=== PATIENT | female | born 1935 | race Caucasian/White ===

== ENCOUNTER 2020-07-12 21:07 | Emergency (ER) | payer MEDICARE, OTHER, SELFPAY ==
[2020-07-12 21:11] VITALS: BP 206/114; PULSE 92; RESP 14; TEMP 36.7; O2SAT 97; BMI 25.0
--- NOTE | 2020-07-12 21:11 | ECG_ITS ---
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 Measurements Intervals Ralph Rate: 92 P: 67 WI: 180 QRS: 25 QRSD: 92 T: 85 QT: 366 QTc: 454 Interpretive Statements SINUS RHYTHM WITH FREQUENT VENTRICULAR PREMATURE COMPLEXES NONSPECIFIC ST & T-WAVE ABNORMALITY ABNORMAL RHYTHM ECG Compared to ECG 09/11/2018 12:37:59 T-wave abnormality now present Myocardial infarct finding no longer present Electronically Signed On 07-13-2020 9:34:23 CDT by Boris Panda M.D. [id number]
--- NOTE | 2020-07-12 21:12 | ED_ITS ---
HPI - Weakness General: Chief complaint: General Medical Stated complaint: htn and gen weakness Time Seen by Provider: 07/12/20 21:08 Source: patient and EMS Mode of arrival: EMS Limitations: no limitations History of Present Illness: HPI Narrative: 85-year-old female who states that tonight she started having some generalized weakness checked her blood pressure and it was in the 200s. She states she became concerned. She had no focal deficits and states she just did not feel well and had some weakness. Patient's blood pressure here is 206/114. States she is feeling improved. She denies any vision changes and denies any difficulty walking. She states she was on a blood pressure medicine has been off of it for 2 to 3 months. Denies any chest pain or shortness of breath. Associated symptoms: Denies chest pain, chills, dysuria, easy bruising, fever(s), nausea or vomiting Review of Systems Const: Denies: fever(s), chills, body aches or change in appetite Eyes: Denies: blurry vision or eye discomfort ENMT: Denies: throat pain or dental pain Card: Denies: chest pain Resp: Denies: dyspnea GI: Denies: abdominal pain, nausea, vomiting or diarrhea : Denies: dysuria Musc: Denies: neck pain or back pain Skin/Breast: Denies: rash Neuro: Reports: weakness in extremities Psych: Denies: depression Greyson/Lymph: Denies: easy bruising All/Imm: Denies: urticaria Physical Exam Const: COMMON NORMALS: no acute distress, patient oriented x3 and healthy a ppearing HENMT: COMMON NORMALS: normocephalic and atraumatic HEAD & SCALP: normocephalic and atraumatic Eye: COMMON NORMALS: Equal, round and reactive pupils present and EOMs intact bilaterally PUPIL: Yes Equal, round and reactive pupils present Neck/C-Spine: COMMON NORMALS: full ROM and supple Chest: COMMONS NORMALS: normal inspection of the chest and normal palpation of entire chest wall Resp: COMMON NORMALS: normal respiratory effort, No retractions, No use of accessory muscles and clear to auscultation bilaterally AUSCULTATION: clear to auscultation bilaterally Cardio: COMMON NORMALS: regular rate, regular rhythm and No murmurs present (Cardio) RATE: regular rate RHYTHM: regular rhythm GI: COMMON NORMALS: Normal to inspection, nondistended, normoactive bowel sounds present, Soft to palpation, non-tender and no masses PALPATION: Yes Soft to palpation Extremity: COMMON NORMALS: normal to inspection and full ROM Neuro: COMMON NORMALS: patient oriented x3, moves all extremities and no focal motor deficits Psych: COMMON NORMALS: mental status grossly normal, Normal thought process present and cooperative THOUGHT PROCESS: Normal thought process present Skin: COMMON NORMALS: no rashes or lesions noted and no wounds GENERAL SKIN EXAM: no rashes or lesions noted Course Vital Signs: Vital signs: Vital Signs Temperature 98.0 F 07/12/20 21:11 Pulse Rate 76 07/12/20 21:29 Respiratory Rate 16 07/12/20 21:29 Blood Pressure 206/114 07/12/20 21:29 Pulse Oximetry 96 07/12/20 21:29 MDM - Weakness MDM Narrative: Medical decision making narrative: Patient presents here with high blood pressure. Blood pressure here is improving. She had some generalized weakness likely from her hypertension. CT head here shows no signs of stroke and her blood work is normal. She has no focal deficits. We will restart her back on her lisinopril that she was taking. She is to follow-up with PCP in 5 to 7 days and return if worsening. She understands and agrees to plan. Lab Data: Labs: Lab Results 07/12/20 07/12/20 07/12/20 Range/Units 21:22 21:22 22:30 WBC 7.1 (4.0-10.0) 10^3/ uL RBC 4.28 (4.1-5.3) 10^6/u L Hgb 11.7 (11.5-15.3) g/dL Hct 37.6 (37.0-47.0) % MCV 87.9 (81-99) fL MCH 27.3 L (28.0-34.0) pg MCHC 31.1 (30.0-36.0) g/dL RDW 14.4 (12.1-15.1) % Plt Count 321 (130-400) 10^3/c mm MPV 9.8 (7.4-10.4) fL Neut % (Auto) 51.5 % Lymph % (Auto) 24.5 % [place] % (Auto) 13.9 % Eos % (Auto) 8.5 % Baso % (Auto) 1.3 % Neut # (Auto) 3.66 (1.8-7.7) 10^3/u L Lymph # (Auto) 1.7 (0.8-4.8) 10^3/u L Huntington # (Auto) 1.0 H (0.2-0.9) 10^3/u L Eos # (Auto) 0.6 (0.0-0.8) 10^3/u L Baso # (Auto) 0.1 (0.0-0.1) 10^3/u L Nucleated RBC % (a uto) 0 % Nucleated RBCs # 0.0 /100WBC Sodium Cancelled 142 Potassium Cancelled 3.8 Chloride Cancelled 107 Carbon Dioxide Cancelled 23 Anion Gap Cancelled 15.8 BUN Cancelled Creatinine Cancelled GFR Calculation Cancelled Not Reportable Glucose Cancelled 113 Calculated Osmolal ity Cancelled Calcium Cancelled 9.0 Total Bilirubin Cancelled 0.2 AST Cancelled 15 ALT Cancelled 8 Alkaline Phosphata se Cancelled 87 Total Protein Cancelled 7.1 Albumin Cancelled 3.8 Globulin Cancelled 3.3 Imaging Data^: CT Head: Attestation: I personally reviewed and interpreted this imaging study as follows: Radiologist's impression: [place] [address] CT Scan Report Signed Patient: Josephine Springer Unit #: [id number] : 1935 Age/Sex: 85 / F ADM Date: 07/12/20 Loc: ER Room/Bed: Attending Dr: Ordering Provider/Ordering MD: Zayra Hargrove MD Date of Service: 07/12/20 Procedure(s): CT head wo con* [id number] Accession Number(s): [id number] Report Number: [id number] PROCEDURE INFORMATION: Exam: CT Head Without Contrast Exam date and time: 07/12/2020 9:17 PM Age: 85 years old Clinical indication: Dizziness and weakness, extremity and other: HTN; Bilateral TECHNIQUE: Imaging protocol: Computed tomography of the head without contrast. Radiation optimization: All CT scans at this facility use at least one of these dose optimization techniques: automated exposure control; mA and/or kV adjustment per patient size (includes targeted exams where dose is matched to clinical indication); or iterative reconstruction. ADDITIONAL STUDY INFORMATION: Total DLP (mGy-cm): 834.53 COMPARISON: CT head wo con* [id number] 09/10/2018 4:12 PM FINDINGS: There is mild low density in the bilateral periventricular white matter which may represent chronic small vessel ischemic disease in the appropriate clinical setting. There are prominent intracranial arterial calcifications. Mild basal ganglia calcifications are likely physiologic. There is mild cerebral cortical volume loss. Ventricles do not appear significantly dilated. No depressed calvarial fracture is demonstrated. There is prominent opacification in visualized left maxillary sinus, most compatible with mucosal disease. Visualized mastoid air cells demonstrate no significant opacification. CT/CT head wo con* [id number] IMPRESSION: Probable chronic ischemic changes as discussed above. There is prominent opacification in visualized left maxillary sinus, most compatible with mucosal disease. EKG Data^: EKG 1: Attestation: I personally reviewed and interpreted this EKG as follows: EKG interpretation date: 07/12/20 EKG interpretation time: 21:18 Interpretation: nsr hr [address] or t wave abnormalities qrs 92 qtc 416 Discharge Plan Discharge Patient Disposition: Home Clinical Impression: Hypertension Qualifiers: Hypertension type: unspecified Qualified Code(s): I10 - Essential (primary) hypertension Condition: Stable Prescriptions: New lisinopril 10 mg tablet 10 mg PO DAILY Qty: 30 RF: 0 Discharge Orders: Discharge Order (Routine); Ordered 07/12/20 Ordered By: Zayra Hargrove Referrals: Beni Lopez DO [Primary Care Provider] - Discharge Diet: Advance as tolerated Discharge Activity: Resume usual activity Patient Instructions: Hypertension (ED) Coding Level of Care Code 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
[2020-07-12 21:29] VITALS: BP 206/114; PULSE 76; RESP 16; O2SAT 96
[2020-07-12 21:29] LABS: Basophils # 0.1 10^3/uL (0.0-0.1); Basophils % 1.3 %; Eosinophils # 0.6 10^3/uL (0.0-0.8); Eosinophils % 8.5 %; Hematocrit 37.6 % (37.0-47.0); Hemoglobin 11.7 g/dL (11.5-15.3); Lymphocytes # 1.7 10^3/uL (0.8-4.8); Lymphocytes % 24.5 %; Mean Corpuscular HGB Conc 31.1 g/dL (30.0-36.0); Mean Corpuscular Hemoglobin 27.3 pg (28.0-34.0); Mean Corpuscular Volume 87.9 fL (81-99); Mean Platelet Volume 9.8 fL (7.4-10.4); Monocytes % 13.9 %; Neutrophils # 3.66 10^3/uL (1.8-7.7); Neutrophils % 51.5 %; Nucleated Red Blood Cells % 0 %; Platelet Count 321 10^3/cmm (130-400); Red Blood Count 4.28 10^6/uL (4.1-5.3); Red Cell Distribution Width 14.4 % (12.1-15.1); White Blood Count 7.1 10^3/uL (4.0-10.0)
[2020-07-12] MEDS: hyDRALAzine 20 mg/mL INJ 1 mL 10 MG IVP (21:38)
[2020-07-12 21:46] LABS: Slide Review Slide Review Perform
[2020-07-12] MEDS: lisinopril 10 mg Tablet PO (22:41)
[2020-07-12 22:54] LABS: Alanine Aminotransferase 8 U/L (0-33); Albumin Level 3.8 g/dL (3.5-5.2); Alkaline Phosphatase 87 IU/L (35-105); Anion Gap 15.8 (5-19); Aspartate Amino Transferase 15 U/L (0-32); Blood Urea Nitrogen 25 mg/dL (8-23); Carbon Dioxide 23 mmol/L (22-29); Chloride 107 mmol/L (98-107); Globulin 3.3 g/dL (1.3-4.6); Glucose 113 mg/dL (65-115); Osmolality Calculated 299 mOsm/kg (285-295); Potassium 3.8 mmol/L (3.5-5.1); Sodium 142 mmol/L (136-145); Total Bilirubin 0.2 mg/dL (0.15-1.2); Total Protein 7.1 g/dL (6.6-8.7)
[2020-07-12 23:15] VITALS: BP 172/89; PULSE 68; RESP 18
== END 2020-07-12 23:31 | disposition home or self-care (01) ==
PROVIDERS: Emergency Provider Emergency Medicine; PCP Internal Medicine
DX: I10 Essential (primary) hypertension (principal)
CPT/HCPCS: 12345; 70450; 80053; 85025; 93005; 96374; 99282; 99283; J0360

== ENCOUNTER → 2022-01-07 10:14 | Outpatient (BNVA) | payer MEDICARE, OTHER, SELFPAY | PROVIDERS: PCP Internal Medicine; Visit Provider Internal Medicine Cardiovascular Disease | DX: I48.91 Unspecified atrial fibrillation (principal); I49.3 Ventricular premature depolarization; I47.2 Ventricular tachycardia; I10 Essential (primary) hypertension; E78.00 Pure hypercholesterolemia, unspecified; K21.9 Gastro-esophageal reflux disease without esophagitis; C67.9 Malignant neoplasm of bladder, unspecified; I47.1 Supraventricular tachycardia; Z87.891 Personal history of nicotine dependence; Z79.82 Long term (current) use of aspirin | CPT/HCPCS: 99214 ==

== ENCOUNTER 2022-01-18 13:08 | Outpatient (CLI) | payer MEDICARE, OTHER, SELFPAY ==
--- NOTE | 2022-01-18 14:15 | USCV_ITS ---
Josephine Springer Age: 87 Gender: F : 1935 Exam Date: 01/18/2022 13:41 Ordering Phys: Deyanira Briceno MD ([email or web address]) Technologist: SANTINO [place] [facility] [place]: VENTRICULAR PREMATURE DEPOLARIZATION BP: 140 / 80 HR: 144 Rhythm: Sinus Technical Quality: Adequate MEASUREMENTS (Male / Female) Normal Values 2D ECHO LV Diastolic Diameter PLAX 4.5 cm 4.2 - 5.9 / 3.9 - 5.3 cm LV Systolic Diameter PLAX 2.6 cm IVS Diastolic Thickness 1.1 cm 0.6 - 1.0 / 0.6 - 0.9 cm IVS Systolic Thickness 1.8 cm LVPW Diastolic Thickness 1.1 cm 0.6 - 1.0 / 0.6 - 0.9 cm LVPW Systolic Thickness 1.6 cm LVOT Diameter 2.0 cm LV Ejection Fraction 2D Teich 73.3 % LV Ejection Fraction MOD 2C 68.9 % LV Ejection Fraction 2C AL 70.9 % LA Diameter 3.2 cm LA Width 2.9 cm LA Height 4.6 cm RA Width 3.0 cm RA Height 3.9 cm Aorta at Sinotubular Diameter 2.1 cm M-MODE Aortic Annulus Diameter 2.3 cm LA Ao Ratio MM 1.4 MV E Point Septal Separation 0.7 cm DOPPLER AV Peak Velocity 114.0 cm/s LVOT Peak Velocity 89.0 cm/s AV Area Cont Eq vti 2.4 cm squared AV Area Cont Eq pk 2.4 cm squared MV Peak Velocity 134.0 cm/s MV Area PHT 3.1 cm squared Mitral E to A Ratio 0.8 MV E' Velocity 53.0 cm/s Mitral E to MV E' Ratio 14.3 Mitral E to LV E' Lateral Ratio 16.4 Mitral E to LV E' Septal Ratio 12.8 TR Peak Velocity 255.6 cm/s TR Peak Gradient 26.1 mmHg TR Mean Velocity 221.1 cm/s TR Mean Gradient 19.7 mmHg TR Velocity Time Integral 73.7 cm TV Peak E Velocity 51.0 cm/s Right Atrial Pressure 3.0 mmHg Pulmonary Artery Systolic Pressu 29.1 mmHg PV Peak Velocity 84.0 cm/s RV Acceleration Time 0.1 s RV Ejection Time 0.3 s RV AcT/ET 0.3 FINDINGS Left Ventricle Normal left ventricular size, systolic function and wall thickness, with no regional wall motion abnormalities. Left ventricular ejection fraction is estimated at 65 %. Grade II diastolic dysfunction, moderately elevated filling pressures. Right Ventricle Normal right ventricular size and systolic function. Right ventricular systolic pressure 29.1 mmHg. Right Atrium Normal right atrial size. Right atrial pressure estimated at 3 mm Hg. Left Atrium Mildly increased left atrial size. Small patent foramen ovale with left to right shunt. Mitral Valve Structurally normal mitral valve. No mitral valve stenosis. Trace to mild mitral valve regurgitation. Aortic Valve Structurally normal trileaflet aortic valve. No aortic valve stenosis. Trace aortic valve regurgitation. Tricuspid Valve Structurally normal tricuspid valve. No tricuspid valve stenosis. Mild tricuspid valve regurgitation. Pulmonic Valve Structurally normal pulmonic valve. No pulmonary valve stenosis. Trace pulmonary valve regurgitation. Pericardium No pericardial effusion. Aorta Normal size aortic root and proximal ascending aorta. Normal sized inferior vena cava with >50% respiratory variation. CONCLUSIONS 1. Normal left ventricular size, systolic function and wall thickness, with no regional wall motion abnormalities. Left ventricular ejection fraction is estimated at 65 %. Grade II diastolic dysfunction, moderately elevated filling pressures. 2. Mildly increased left atrial size. 3. Pulmonary artery pressure estimated at 29 mm Hg. 4. Small patent foramen ovale with left to right shunt. 5. When compared to echocardiogram dated 09/11/2018; small PFO is noted now. Deyanira Briceno MD (Electronically Signed) Final Date: 20 January 2022 21:55 S
== END 2022-01-18 13:09 | disposition home or self-care (01) ==
LOC: RAD 13:10
PROVIDERS: PCP Internal Medicine; Visit Provider Internal Medicine Cardiovascular Disease
DX: I49.3 Ventricular premature depolarization (principal)
CPT/HCPCS: 93306

== ENCOUNTER 2022-03-05 09:20 | Outpatient (CLI) | payer MEDICARE, OTHER, SELFPAY ==
[2022-03-05 10:14] VITALS: BMI 24.7
--- NOTE | 2022-03-05 10:19 | ECG_ITS ---
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 Interpretive Statements NAME OF STUDY: LEXISCAN SESTAMIBI STRESS TEST INDICATION: Nonsustained ventricular tachycardia and frequent PVCs' PROCEDURE: At the baseline, the blood pressure was 171/84 mmHg, oxygen saturation 95% with a heart rate of 75 bpm. The electrocardiogram showed normal sinus rhythm, normal axis with moderate ST depression in inferolateral leads. The Lexiscan was infused over a period of 20 seconds. A total of 0.4 milligrams of Lexiscan was infused. The stress phase was continued for a total of 5 minutes. Heart rate at the end of the stress phase was 95 bpm, oxygen saturation 96% with a blood pressure of 172/81 mmHg. The EKG at the peak infusion revealed sinus rhythm with no significant ST-T wave changes. The study was terminated due to protocol completion. Sestamibi was injected 20 seconds after the Lexiscan infusion. Blood pressure at the end of the recovery phase was 179/82 mmHg, oxygen saturation 95% with a heart rate of 92 beats per minute. Isolated PVCs noted in recovery. CONCLUSION: 1. No significant EKG changes with the LexiScan infusion. 2. No LexiScan induced chest pain or cardiac arrhythmia. 3. Normal blood pressure and heart rate response. 4. Sestamibi/sestamibi perfusion scan pending; see separate report. Electronically Signed On 03-08-2022 14:30:25 CDT by Deyanira Briceno M.D. [id number]
--- NOTE | 2022-03-05 10:20 | NMCV_ITS ---
NM rae perf SPECT r/s* [id number] Josephine Springer Age: 87 Gender: F : 1935 Exam Date: 03/05/2022 11:04 Ordering Phys: Deyanira Briceno MD ([email or web address]) Technologist: AMBER Crowder Exam Location: [facility] Indications: VENTRICULAR PREMATURE DEPOLARIZATION STRESS TEST [facility] IMAGE PROTOCOL Rest/Stress 1 Lexiscan Day Radiopharmaceutical Dose (mCi) Administration Site Administered by Rest: Tc-99m 10.6 IV AMBER [place] Sestamibi Stress:Tc-99m 32.5 IV AMBER Crowder Sestamichung Rest: 05-Mar-2022 60 Discovery 630 Stress: 05-Mar-2022 30 Discovery 630 0.4mg Lexiscan. Supine position only as patient was unable to lay prone. SPECT RESULTS Technical Quality: Excellent Raw Data Analysis: Normal Image Corrections: No attenuation or motion correction applied Summed Stress Score: 2 Summed Rest Score: 1 Summed Difference Score: 1 PERFUSION FINDINGS Small sized perfusion abnormality of mild severity of apical lateral and apical velez. FUNCTIONAL RESULTS (calculated via Gated SPECT) Stress Image LV EF (%): 61 Stress EDV (mL):72 TID: 0.9 Stress ESV (mL):28 FUNCTIONAL FINDINGS: The left ventricle is normal in size. Transient Ischemia Dilatation of 0.9. There is normal left ventricular systolic function. The left ventricular ejection fraction is normal with a value of 61%. There is normal left ventricular wall thickening with no regional wall motion abnormality. Normal end-diastolic and end-systolic volumes. IMPRESSIONS 1. Small sized perfusion abnormality of mild severity of apical lateral and apical velez. 2. This may represent small area of ischemia in left anterior descending artery territory. 3. Overall left ventricular systolic function is normal without regional wall motion abnormalities, LVEF=61%. 4. No significant EKG changes with Lexiscan infusion. Refer to separate report for details. Deyanira Briceno MD (Electronically Signed) Final Date: 08 March 2022 14:34 S
[2022-03-05] MEDS: regadenoson 0.4 Mg/5 ml Syringe IVP (12:06)
[2022-03-05 12:23] VITALS: BP 179/82; PULSE 92
== END 2022-03-05 09:21 | disposition home or self-care (01) ==
LOC: CDL 09:24
PROVIDERS: PCP Internal Medicine; Visit Provider Internal Medicine Cardiovascular Disease
DX: I47.1 Supraventricular tachycardia (principal); I47.2 Ventricular tachycardia; I49.3 Ventricular premature depolarization
CPT/HCPCS: 78452; 93017; A9500; J2785

== ENCOUNTER → 2022-07-17 10:45 | Outpatient (BNVA) | payer MEDICARE, OTHER, SELFPAY | PROVIDERS: PCP Internal Medicine; Visit Provider Internal Medicine Cardiovascular Disease | DX: I49.3 Ventricular premature depolarization (principal); I47.20 Ventricular tachycardia, unspecified; I10 Essential (primary) hypertension; R94.39 Abnormal result of other cardiovascular function study; Z87.891 Personal history of nicotine dependence | CPT/HCPCS: 99214 ==

== ENCOUNTER → 2022-09-17 09:48 | Outpatient (BNVA) | payer MEDICARE, OTHER, SELFPAY | PROVIDERS: PCP Internal Medicine; Visit Provider Podiatrist Foot & Ankle Surgery | DX: I73.9 Peripheral vascular disease, unspecified (principal); L60.3 Nail dystrophy; M21.612 Bunion of left foot; M21.611 Bunion of right foot | CPT/HCPCS: 11721; 99203 ==

== ENCOUNTER → 2022-11-28 14:12 | Outpatient (BNVA) | payer MEDICARE, OTHER, SELFPAY | PROVIDERS: PCP Internal Medicine; Visit Provider Podiatrist Foot & Ankle Surgery | DX: I73.9 Peripheral vascular disease, unspecified (principal); L60.8 Other nail disorders; L60.3 Nail dystrophy; M21.612 Bunion of left foot; M21.611 Bunion of right foot | CPT/HCPCS: 11721 ==

== ENCOUNTER → 2023-01-29 09:46 | Outpatient (BNVA) | payer MEDICARE, OTHER, SELFPAY | PROVIDERS: PCP Internal Medicine; Visit Provider Podiatrist Foot & Ankle Surgery | DX: I73.9 Peripheral vascular disease, unspecified (principal); L60.8 Other nail disorders; L60.3 Nail dystrophy; M21.612 Bunion of left foot; M21.611 Bunion of right foot | CPT/HCPCS: 11721 ==

== ENCOUNTER → 2023-03-07 10:52 | Outpatient (BNVA) | payer MEDICARE, OTHER, SELFPAY | PROVIDERS: PCP Internal Medicine; Visit Provider Internal Medicine Cardiovascular Disease | DX: I49.3 Ventricular premature depolarization (principal); I47.1 Supraventricular tachycardia; I10 Essential (primary) hypertension; R94.39 Abnormal result of other cardiovascular function study; E78.00 Pure hypercholesterolemia, unspecified; Z87.891 Personal history of nicotine dependence | CPT/HCPCS: 99214 ==

== ENCOUNTER → 2023-04-02 09:33 | Outpatient (BNVA) | payer MEDICARE, OTHER, SELFPAY | PROVIDERS: PCP Internal Medicine; Visit Provider Podiatrist Foot & Ankle Surgery | DX: I73.9 Peripheral vascular disease, unspecified (principal); L60.8 Other nail disorders; L60.3 Nail dystrophy; M21.612 Bunion of left foot; M21.611 Bunion of right foot | CPT/HCPCS: 11721 ==

== ENCOUNTER → 2023-06-11 08:46 | Outpatient (BNVA) | payer MEDICARE, OTHER, SELFPAY | PROVIDERS: PCP Internal Medicine; Visit Provider Podiatrist Foot & Ankle Surgery | DX: L60.8 Other nail disorders (principal); L60.3 Nail dystrophy; I73.9 Peripheral vascular disease, unspecified; M21.619 Bunion of unspecified foot | CPT/HCPCS: 11721 ==

== ENCOUNTER → 2023-08-13 10:16 | Outpatient (BNVA) | payer MEDICARE, OTHER, SELFPAY | PROVIDERS: PCP Internal Medicine; Visit Provider Podiatrist Foot & Ankle Surgery | DX: L60.3 Nail dystrophy (principal); I73.9 Peripheral vascular disease, unspecified; M21.612 Bunion of left foot; M21.611 Bunion of right foot | CPT/HCPCS: 11721 ==

== ENCOUNTER → 2023-10-15 11:19 | Outpatient (BNVA) | payer MEDICARE, OTHER, SELFPAY | PROVIDERS: PCP Family Medicine; Visit Provider Podiatrist Foot & Ankle Surgery | DX: L60.3 Nail dystrophy (principal); I73.9 Peripheral vascular disease, unspecified; M21.619 Bunion of unspecified foot | CPT/HCPCS: 11721 ==

== ENCOUNTER → 2023-12-24 12:37 | Outpatient (BNVA) | payer MEDICARE, OTHER, SELFPAY | PROVIDERS: PCP Family Medicine; Visit Provider Podiatrist Foot & Ankle Surgery | DX: L60.3 Nail dystrophy (principal); I73.9 Peripheral vascular disease, unspecified; M21.612 Bunion of left foot; M21.611 Bunion of right foot | CPT/HCPCS: 11721 ==

== ENCOUNTER → 2024-03-10 12:48 | Outpatient (BNVA) | payer MEDICARE, OTHER, SELFPAY | PROVIDERS: PCP Family Medicine; Visit Provider Podiatrist Foot & Ankle Surgery | DX: L60.3 Nail dystrophy (principal); I73.9 Peripheral vascular disease, unspecified | CPT/HCPCS: 11721 ==

== ENCOUNTER → 2024-07-07 11:18 | Outpatient (BNVA) | payer MEDICARE, OTHER, SELFPAY | PROVIDERS: PCP Nurse Practitioner Family; Visit Provider Podiatrist Foot & Ankle Surgery | DX: E11.8 Type 2 diabetes mellitus with unspecified complications (principal); L60.3 Nail dystrophy; I73.9 Peripheral vascular disease, unspecified | CPT/HCPCS: 11721 ==

== ENCOUNTER → 2024-08-03 14:21 | Outpatient (BNVA) | payer MEDICARE, OTHER, SELFPAY | PROVIDERS: PCP Nurse Practitioner Family; Visit Provider Nurse Practitioner Family | DX: N39.0 Urinary tract infection, site not specified (principal); R39.9 Unspecified symptoms and signs involving the genitourinary system | CPT/HCPCS: 81000; 87086 ==

== ENCOUNTER → 2024-09-06 11:27 | Outpatient (BNVA) | payer MEDICARE, OTHER, SELFPAY | PROVIDERS: PCP Nurse Practitioner Family | DX: E11.8 Type 2 diabetes mellitus with unspecified complications (principal); L60.3 Nail dystrophy; I73.9 Peripheral vascular disease, unspecified | CPT/HCPCS: 11721 ==

== ENCOUNTER 2025-01-09 17:12 | Emergency (ER) | payer MEDICARE, OTHER, SELFPAY ==
[2025-01-09] VITALS (14 sets, daily range): BP systolic 100–158; BP diastolic 54–93; PULSE 80–95; RESP 16–23; TEMP 36.6–36.9; O2SAT 95–100; BMI 24.7
--- NOTE | 2025-01-09 17:22 | CTR_ITS ---
PROCEDURE INFORMATION: Exam: CT Head Without Contrast Exam date and time: 01/09/2025 7:21 PM Age: 89 years old Clinical indication: Weakness, extremity and weakness, facial; EMS arrival for left facial droop and left sided weakness. ; Additional info: Left sided facial droop/left sided weakness resolved TECHNIQUE: Imaging protocol: Computed tomography of the head without contrast. Radiation optimization: All CT scans at this facility use at least one of these dose optimization techniques: automated exposure control; mA and/or kV adjustment per patient size (includes targeted exams where dose is matched to clinical indication); or iterative reconstruction. 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 No acute intracranial abnormality. Cerebral ventricles: No ventriculomegaly. Paranasal sinuses: Visualized sinuses are unremarkable. No fluid levels. Mastoid air cells: Visualized mastoid air cells are well aerated. Bones: Unremarkable. No acute fracture. Soft tissues: Unremarkable. CT/CT head wo con* [id number] IMPRESSION: 1. No acute intracranial abnormality. 2. 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
--- NOTE | 2025-01-09 17:24 | ED_ITS ---
Documented by User: CECILE Smith 01/10/25 00:08 HPI - Weakness 2 General: Chief complaint: Weakness Stated complaint: weakness Time Seen by Provider: 01/09/25 17:13 Source: patient, family and EMS Mode of arrival: EMS Limitations: no limitations History of Present Illness: Patient is an 89-year-old female who arrives to the emergency department by ambulance for weakness. Patient a week ago reportedly had surgery on her bladder a week ago, and per family to EMS has not been quite right since. Does have a history of bladder cancer. There is report that she also fell at some point last night, no injuries or pain reported at this time from the patient. She is also alert and oriented and at baseline, however was noted by EMS that the patient's family had reported that around 1528 the patient had weakness in the left upper extremity as well as one-sided facial droop, was not specified what side the facial droop was on however. Symptoms have reportedly resolved since. At this time patient does not report any symptoms whatsoever. She does not report any chest pain or shortness of breath, fever, nausea or vomiting, lightheadedness or dizziness, or weakness at this time. It is worth noting that patient's last reported known well at baseline was prior to the bladder surgery that she just underwent. MD Complaint: generalized weakness Onset (ago): week(s) Duration: constant Context: recent surgery Associated symptoms: Denies chest pain, chills, dysuria, fever(s), headache(s), nausea or vomiting Review of Systems 2 General: Reports: 10 or more systems reviewed and unremarkable except in HPI and below Const: Denies: fever(s), chills or fatigue Eyes: Denies: change in vision ENMT: Denies: throat pain, ear or mastoid pain or nasal discharge Card: Denies: chest pain, palpitations, swelling of feet/ankles or lightheadedness Resp: Denies: dyspnea, productive cough or wheezing GI: Denies: abdominal pain, nausea, vomiting, diarrhea or constipation : Denies: difficulty voiding, dysuria or urinary frequency Musc: Denies: neck pain, back pain or joint pain Skin/Breast: Denies: rash Neuro: Reports: weakness in extremities, behavioral changes and other (Facial droop); Denies: headache(s) or numbness in extremities PFSH ED 2 PFSH: Medical History (Updated 01/09/25 @ 23:14 by CEICLE Smith) Acute on chronic blood loss anemia UTI (urinary tract infection) Hydronephrosis, left PSVT (paroxysmal supraventricular tachycardia) HTN (hypertension) Arthritis Sleep disorder Esophageal reflux Hypercholesteremia Bladder cancer Surgical History S/P ureteral stent placement Family History Father Hypertension Mother FH: CABG (coronary artery bypass surgery) Social History Smoking and tobacco/nicotine status: unknown if used tobacco/nicotine Physical Exam 2 Const: COMMON NORMALS: no acute distress, patient oriented x3 and alert G ENERAL APPEARANCE: cooperative ORIENTATION/CONSCIOUSNESS: Yes awake, Yes oriented to person, Yes oriented to place and Yes oriented to time HENMT: COMMON NORMALS: normocephalic and atraumatic HEAD & SCALP: n ormocephalic and atraumatic OTHER: Dry oral mucosa Eye: COMMON NORMALS: Equal, round and reactive pupils present, EOMs intact bilaterally and conjunctivae normal CONJUNCTIVA: Yes conjunctivae normal P UPIL: Yes Equal, round and reactive pupils present OTHER: Eyes track midline Neck/C-Spine: COMMON NORMALS: full ROM Resp: COMMON NORMALS: normal respiratory effort, No retractions, No use of accessory muscles and clear to auscultation bilaterally AUSCULTATION: clear to auscultation bilaterally Cardio: COMMON NORMALS: regular rate, regular rhythm, S1 normal heart sound present and S2 normal heart sound present RATE: regular rate RHYTHM: r egular rhythm HEART SOUNDS: S1 normal heart sound present and S2 normal heart sound present GI: COMMON NORMALS: Normal to inspection, nondistended, normoactive bowel sounds present, Soft to palpation and non-tender PALPATION: Yes Soft to palpation Extremity: COMMON NORMALS: normal to inspection and full ROM Neuro: COMMON NORMALS: patient oriented x3, moves all extremities and no sensory deficits noted SENSORIUM/ORIENTATION: Yes alert, Yes oriented to person, Yes oriented to place and Yes oriented to time SPEECH: speech normal GAIT: Yes Unable to assess gait MOTOR EXAM: 5/5 motor strength present throughout, no tremor noted, no asterixis, Normal motor muscle tone present throughout and Pronator motor function present pronator drift of left upper extremity Skin: COMMON NORMALS: no rashes or lesions noted GENERAL SKIN EXAM: no rashes or lesions noted Course 2 Vital Signs: Vital signs: Vital Signs Temperature 97.9 F 01/09/25 21:40 Pulse Rate 82 01/09/25 21:40 Respiratory Rate 22 H 01/09/25 21:40 Blood Pressure 132/71 01/09/25 21:40 Pulse Oximetry 95 01/09/25 21:40 Oxygen Delivery Me thod Room Air 01/09/25 20:30 MDM - Weakness Medical Decision Making Patient brought in by ambulance for weakness, there were concerns of strokelike symptoms as well with left sided weakness and facial droop reported by family. These had since resolved and it was noted that her last true normal baseline was a week ago following a surgical procedure at [facility] with urology in which she had cystography and stent removal in the left kidney. Some pronator drift noted here on exam unknown chronicity. However she has been at baseline mentation and vitals have been stable. It was noted that her hemoglobin significantly decreased to 5.7, family had noted that her preop labs were normal. Also bump in her creatinine that limited examination with a CTA, but head CT did not show any acute intracranial normality. Was started on blood products after type and screen, and initially consulted Dr. Cabral who had recommended abdomen pelvis CT. This did show a large hematoma of the left kidney with fluid in the left renal collecting system and a dilated left ureter to the bladder. 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 I consulted with Dr. Barbosa, urology at [facility], who had stated that based off of the family's needs that this could either be treated palliative or with further intervention. Patient was DNR and DNI, however family had noted that they would like further evaluation. Being that this was the case and after a long conversation with the family, elected for transfer to [facility] services. Dr. Brooke was the accepting hospitalist, with likely patient's current urologist consulting them in the morning. Patient started on 2 more units of blood and will transfer by [facility] in the morning. Staffed this patient with Dr. Dhaliwal who is aware of the patient's case. I also discussed this patient's case with Dr. Hargrove upon initial arrival. Patient is currently stable at this time and remaining at baseline mentation. Lab Data 01/09/25 18:13 01/09/25 18:[address] 01/09/25 17:22 IMPRESSION: 1. No acute intracranial abnormality. 2. 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 Chest X-Ray 01/09/25 17:24 IMPRESSION: Moderate-sized left-sided pleural effusion. Small right-sided pleural effusion. Abdomen/Pelvis CT 01/09/25 20:54 IMPRESSION: 1. Subcapsular hematoma of the left kidney measuring approximately 9.1 x 5.3 x 5.7 cm. 2. There is hyperdense fluid in the left renal collecting system, dilated left ureter down to the level of the bladder. 3. Circumferential bladder wall thickening with calcifications along the inner rim of the bladder wall. There is a tiny locule of air in the bladder. Nonspecific this can be seen the setting of cystitis. Correlate with UA. COMMENTS: Consistent with the [employer] [employer]'s Incidental Findings Committee white paper (J Am Jacqueline Radiol 2018): Any incidental renal lesion less than 1 cm or classified as too small to characterize, or any incidental cystic renal lesion characterized as simple-appearing, is likely benign. No follow-up imaging is recommended for these lesions per consensus recommendations based on imaging criteria. ADDENDUM: 01/09/25 0287 THIS REPORT CONTAINS FINDINGS THAT MAY BE CRITICAL TO PATIENT CARE. The findings were verbally communicated via telephone conference with JADA MENDIOLA at 9:58 PM CDT on 01/09/2025. The findings were acknowledged and understood. Laboratory Results WBC 13.93 10^3/uL (3.29-11.43) H 01/09/25 18: RBC 2.60 10^6/uL (3.85-5.65) L 01/09/25 18:13 Hgb 5.70 g/dL (11.27-16.99) L* 01/09/25 18:13 Hct 20.4 % (36-47) L* 01/09/25 18:13 MCV 78.5 fl (85-98) L 01/09/25 18: MCH 21.9 pg (27-33) L 01/09/25 18:13 MCHC 27.9 g/dL (30-55) L 01/09/25 18:13 RDW 17.7 % (12.1-15.1) H 01/09/25 18:13 Plt Count 399 10^3/cmm (157-399) 01/09/25 18:13 MPV 10.2 fL (7.4-10.4) 01/09/25 18:13 Neut % (Auto) 89.1 % 01/09/25 18:13 Lymph % (Auto) 4.1 % 01/09/25 18:13 [place] % (Auto) 6.3 % 01/09/25 18:13 Eos % (Auto) 0.0 % 01/09/25 18:13 Baso % (Auto) 0.1 % 01/09/25 18:13 Neut # (Auto) 12.41 10^3/uL (1.8-7.7) H 01/09/25 18:13 Lymph # (Auto) 0.6 10^3/uL (0.8-4.8) L 01/09/25 18:13 [place] # (Auto) 0.9 10^3/uL (0.2-0.9) 01/09/25 18:13 Eos # (Auto) 0.0 10^3/uL (0.0-0.8) 01/09/25 18:13 Baso # (Auto) 0.0 10^3/uL (0.0-0.1) 01/09/25 18:13 Nucleated RBC % (auto) 1.1 % 01/09/25 18:13 Nucleated RBCs # 0.2 /100WBC 01/09/25 18:13 PT 16.00 SECONDS (12.1-14.9) H 01/09/25 18:26 INR 1.20 (0.8-1.2) 01/09/25 18:26 APTT 35.6 SECONDS (23.9-36.7) 01/09/25 18:26 Sodium 133 mmol/L (136-145) L 01/09/25 18:13 Potassium 5.0 mmol/L (3.5-5.1) 01/09/25 18:13 Chloride 101 mmol/L (98-107) 01/09/25 18:13 Carbon Dioxide 17 mmol/L (22-29) L 01/09/25 18:13 Anion Gap 20.0 (5-19) H 01/09/25 18:13 BUN 41 mg/dL (8-23) H 01/09/25 18:13 Creatinine 2.6 mg/dL (0.5-0.9) H 01/09/25 18:13 GFR Calculation Not Reportable 01/09/25 18:13 Glucose 123 mg/dL (65-115) H 01/09/25 18:13 Calculated Osmolality 287 mOsm/kg (285-295) 01/09/25 18:13 Lactic Acid 2.0 mmol/L (0.5-2.2) 01/09/25 18:13 Calcium 8.9 mg/dL (8.5-10.5) 01/09/25 18:13 Magnesium 2.3 mg/dL (1.7-2.3) 01/09/25 18:13 Iron 8 ug/dL (37-145) L 01/09/25 18:13 TIBC 278 mcg/dl 01/09/25 18:13 % Saturation 2.8 % (20-50) L 01/09/25 18:13 Unsat Iron Binding 270 ug/dL (112-347) 01/09/25 18:13 Total Bilirubin 0.3 mg/dL (0.15-1.2) 01/09/25 18:13 AST 30 U/L (0-32) 01/09/25 18:13 ALT 14 U/L (0-33) 01/09/25 18:13 Alkaline Phosphatase 119 U/L (35-105) H 01/09/25 18:13 Total Protein 6.7 g/dL (6.6-8.7) 01/09/25 18:13 Albumin 2.8 g/dL (3.5-5.2) L 01/09/25 18:13 Globulin 3.9 g/dL (1.3-4.6) 01/09/25 18:13 Urine Color Yellow (Yellow) 01/09/25 19:42 Urine Appearance Slightly cloudy (CLEAR) 01/09/25 19:42 Urine pH 9 (5-7) A 01/09/25 19:42 Ur Specific [place] 1.010 (1.005-1.030) 01/09/25 19:42 Urine Protein 1+ (Negative) A 01/09/25 19:42 Urine Glucose (UA) Norm (Normal) 01/09/25 19:42 Urine Ketones Negative (Negative) 01/09/25 19:42 Urine Blood 3+ (Negative) A 01/09/25 19:42 Urine Nitrate Negative (Negative) 01/09/25 19:42 Urine Bilirubin Neg (Negative) 01/09/25 19:42 Urine Urobilinogen Norm mg/dL (Negative) 01/09/25 19:42 Ur Leukocyte Esterase 2+ (Negative) A 01/09/25 19:42 Urine RBC 21-50 /hpf (0-2) H 01/09/25 19:42 Urine WBC 21-50 /hpf (0-5) H 01/09/25 19:42 Ur Squamous Epith Cells 21-50 /hpf (0-5) H 01/09/25 19:42 Amorphous Sediment Not Reportable 01/09/25 19:42 Urine Bacteria Trace /hpf (NONE) 01/09/25 19:42 Hyaline Casts 4.52 /lpf 01/09/25 19:42 Blood Type O Positive 01/09/25 19:33 Rho(D) Type Rh positive 01/09/25 19:33 Antibody Screen Negative 01/09/25 19:33 Crossmatch See Detail 01/09/25 19:33 All radiology interpretation(s) finalized by discharge Discharge Plan Discharge Patient Disposition: Xfer Short-Term Hosp Clinical Impression: Renal hematoma, left Qualifiers: Encounter type: initial encounter Qualified Code(s): S37.012A - Minor contusion of left kidney, initial encounter Anemia Qualifiers: Anemia type: other cause Other causes of anemia: other cause, not classified Q ualified Code(s): D64.89 - Other specified anemias Condition: Stable Referrals: Denise Navarrete FNP-C [Primary Care Provider] - Print Language: [place] Coding Level of Care Code ED Ratoprinter for Chg Fwd Related Data Home Medications ?Medication ?Instructions ?Recorded ?Confirmed Calcium Citrate +D3 PO BID 10/08/21 09/06/24 aspirin 81 mg tablet,delayed 81 mg PO DAILY 10/08/21 1 11/07/23 release (Adult Low Dose Aspirin) vit cap PO 10/08/21 09/06/24 C,E,zinc,Nu-ehhhr-5-lutein-zeaxanthin 250 mg-2.5 mg-0.5 mg capsule potassium gluconate 600 mg (99 mg) 600 mg PO DAILY 09/06/24 tablet trimethoprim 100 mg tablet 100 mg PO DAILY 07/17/22 magnesium oxide 400 mg PO DAILY 03/07/2306/22 oxybutynin chloride 15 mg 15 mg PO DAILY 07/06/2406/22 tablet,extended release 24 hr Previous Rx's ?Medication ?Instructions ?Recorded metoprolol succinate 25 mg 25 mg PO DAILY #90 tabs tablet,extended release 24 hr vibegron 75 mg tablet (Gemtesa) 75 mg PO DAILY #90 tab s 07/06/24 ciprofloxacin HCl 500 mg tablet 500 mg PO BID #14 tabs 08/03/24 Allergies Allergy/AdvReac Type Severity Reaction Status Date / Time cephalexin Allergy Unknown unknown Verified 08/03/24 14:18 Penicillins Allergy Unknown Unknown Verified 08/03/24 14:18 Documented by User: Kevin Dhaliwal DO 01/10/25 01:20 HPI - Weakness 2 General: Chief complaint: Weakness Stated complaint: weakness Time Seen by Provider: 01/09/25 17:13 [facility] ED 2 PFSH: Medical History (Updated 01/09/25 @ 23:14 by CECILE Smith) Acute on chronic blood loss anemia UTI (urinary tract infection) Hydronephrosis, left PSVT (paroxysmal supraventricular tachycardia) HTN (hypertension) Arthritis Sleep disorder Esophageal reflux Hypercholesteremia Bladder cancer Surgical History S/P ureteral stent placement Family History Father Hypertension Mother FH: CABG (coronary artery bypass surgery) Social History Smoking and tobacco/nicotine status: unknown if used tobacco/nicotine Course 2 Vital Signs: Vital signs: Vital Signs Temperature 97.9 F 01/09/25 21:40 Pulse Rate 82 01/09/25 21:40 Respiratory Rate 22 H 01/09/25 21:40 Blood Pressure 132/71 01/09/25 21:40 Pulse Oximetry 95 01/09/25 21:40 Oxygen Delivery Me thod Room Air 01/09/25 20:30 MDM - Weakness Medical Decision Making Patient brought in by ambulance for weakness, there were concerns of strokelike symptoms as well with left sided weakness and facial droop reported by family. These had since resolved and it was noted that her last true normal baseline was a week ago following a surgical procedure at [facility] with urology in which she had cystography and stent removal in the left kidney. Some pronator drift noted here on exam unknown chronicity. However she has been at baseline mentation and vitals have been stable. It was noted that her hemoglobin significantly decreased to 5.7, family had noted that her preop labs were normal. Also bump in her creatinine that limited examination with a CTA, but head CT did not show any acute intracranial normality. Was started on blood products after type and screen, and initially consulted Dr. Cabral who had recommended abdomen pelvis CT. This did show a large hematoma of the left kidney with fluid in the left renal collecting system and a dilated left ureter to the bladder. 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 I consulted with Dr. Barbosa, urology at [facility], who had stated that based off of the family's needs that this could either be treated palliative or with further intervention. Patient was DNR and DNI, however family had noted that they would like further evaluation. Being that this was the case and after a long conversation with the family, elected for transfer to [facility] services. Dr. Brooke was the accepting hospitalist, with likely patient's current urologist consulting them in the morning. Patient started on 2 more units of blood and will transfer by [facility] in the morning. Staffed this patient with Dr. Dhaliwal who is aware of the patient's case. I also discussed this patient's case with Dr. Hargrove upon initial arrival. Patient is currently stable at this time and remaining at baseline mentation. This patient was originally seen by Mr. Sunita PA-C.? I agree with his history, evaluation, and treatment. Lab Data 01/09/25 18:13 01/09/25 18:[address] 01/09/25 17:22 IMPRESSION: 1. No acute intracranial abnormality. 2. 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 Chest X-Ray 01/09/25 17:24 IMPRESSION: Moderate-sized left-sided pleural effusion. Small right-sided pleural effusion. Abdomen/Pelvis CT 01/09/25 20:54 IMPRESSION: 1. Subcapsular hematoma of the left kidney measuring approximately 9.1 x 5.3 x 5.7 cm. 2. There is hyperdense fluid in the left renal collecting system, dilated left ureter down to the level of the bladder. 3. Circumferential bladder wall thickening with calcifications along the inner rim of the bladder wall. There is a tiny locule of air in the bladder. Nonspecific this can be seen the setting of cystitis. Correlate with UA. COMMENTS: Consistent with the [place] [employer]'s Incidental Findings Committee white paper (J Am Jacqueline Radiol 2018): Any incidental renal lesion less than 1 cm or classified as too small to characterize, or any incidental cystic renal lesion characterized as simple-appearing, is likely benign. No follow-up imaging is recommended for these lesions per consensus recommendations based on imaging criteria. ADDENDUM: 01/09/25 [id number] THIS REPORT CONTAINS FINDINGS THAT MAY BE CRITICAL TO PATIENT CARE. The findings were verbally communicated via telephone conference with JADA MENDIOLA at 9:58 PM CDT on 01/09/2025. The findings were acknowledged and understood. Laboratory Results WBC 13.93 10^3/uL (3.29-11.43) H 01/09/25 18:13 RBC 2.60 10^6/uL (3.85-5.65) L 01/09/25 18:13 Hgb 5.70 g/dL (11.27-16.99) L* 01/09/25 18:13 Hct 20.4 % (36-47) L* 01/09/25 18:13 MCV 78.5 fl (85-98) L 01/09/25 18:13 MCH 21.9 pg (27-33) L 01/09/25 18:13 MCHC 27.9 g/dL (30-55) L 01/09/25 18:13 RDW 17.7 % (12.1-15.1) H 01/09/25 18:13 Plt Count 399 10^3/cmm (157-399) 01/09/25 18:13 MPV 10.2 fL (7.4-10.4) 01/09/25 18:13 Neut % (Auto) 89.1 % 01/09/25 18:13 Lymph % (Auto) 4.1 % 01/09/25 18:13 [place] % (Auto) 6.3 % 01/09/25 18:13 Eos % (Auto) 0.0 % 01/09/25 18:13 Baso % (Auto) 0.1 % 01/09/25 18:13 Neut # (Auto) 12.41 10^3/uL (1.8-7.7) H 01/09/25 18:13 Lymph # (Auto) 0.6 10^3/uL (0.8-4.8) L 01/09/25 18:13 [place] # (Auto) 0.9 10^3/uL (0.2-0.9) 01/09/25 18:13 Eos # (Auto) 0.0 10^3/uL (0.0-0.8) 01/09/25 18:13 Baso # (Auto) 0.0 10^3/uL (0.0-0.1) 01/09/25 18:13 Nucleated RBC % (auto) 1.1 % 01/09/25 18:13 Nucleated RBCs # 0.2 /100WBC 01/09/25 18:13 PT 16.00 SECONDS (12.1-14.9) H 01/09/25 18:26 INR 1.20 (0.8-1.2) 01/09/25 18:26 APTT 35.6 SECONDS (23.9-36.7) 01/09/25 18:26 Sodium 133 mmol/L (136-145) L 01/09/25 18:13 Potassium 5.0 mmol/L (3.5-5.1) 01/09/25 18:13 Chloride 101 mmol/L (98-107) 01/09/25 18:13 Carbon Dioxide 17 mmol/L (22-29) L 01/09/25 18:13 Anion Gap 20.0 (5-19) H 01/09/25 18:13 BUN 41 mg/dL (8-23) H 01/09/25 18:13 Creatinine 2.6 mg/dL (0.5-0.9) H 01/09/25 18:13 GFR Calculation Not Reportable 01/09/25 18:13 Glucose 123 mg/dL (65-115) H 01/09/25 18:13 Calculated Osmolality 287 mOsm/kg (285-295) 01/09/25 18:13 Lactic Acid 2.0 mmol/L (0.5-2.2) 01/09/25 18:13 Calcium 8.9 mg/dL (8.5-10.5) 01/09/25 18:13 Magnesium 2.3 mg/dL (1.7-2.3) 01/09/25 18:13 Iron 8 ug/dL (37-145) L 01/09/25 18:13 TIBC 278 mcg/dl 01/09/25 18:13 % Saturation 2.8 % (20-50) L 01/09/25 18:13 Unsat Iron Binding 270 ug/dL (112-347) 01/09/25 18:13 Total Bilirubin 0.3 mg/dL (0.15-1.2) 01/09/25 18:13 AST 30 U/L (0-32) 01/09/25 18:13 ALT 14 U/L (0-33) 01/09/25 18:13 Alkaline Phosphatase 119 U/L (35-105) H 01/09/25 18:13 Total Protein 6.7 g/dL (6.6-8.7) 01/09/25 18:13 Albumin 2.8 g/dL (3.5-5.2) L 01/09/25 18:13 Globulin 3.9 g/dL (1.3-4.6) 01/09/25 18:13 Urine Color Yellow (Yellow) 01/09/25 19:42 Urine Appearance Slightly cloudy (CLEAR) 01/09/25 19:42 Urine pH 9 (5-7) A 01/09/25 19:42 Ur Specific [place] 1.010 (1.005-1.030) 01/09/25 19:42 Urine Protein 1+ (Negative) A 01/09/25 19:42 Urine Glucose (UA) Norm (Normal) 01/09/25 19:42 Urine Ketones Negative (Negative) 01/09/25 19:42 Urine Blood 3+ (Negative) A 01/09/25 19:42 Urine Nitrate Negative (Negative) 01/09/25 19:42 Urine Bilirubin Neg (Negative) 01/09/25 19:42 Urine Urobilinogen Norm mg/dL (Negative) 01/09/25 19:42 Ur Leukocyte Esterase 2+ (Negative) A 01/09/25 19:42 Urine RBC 21-50 /hpf (0-2) H 01/09/25 19:42 Urine WBC 21-50 /hpf (0-5) H 01/09/25 19:42 Ur Squamous Epith Cells 21-50 /hpf (0-5) H 01/09/25 19:42 Amorphous Sediment Not Reportable 01/09/25 19:42 Urine Bacteria Trace /hpf (NONE) 01/09/25 19:42 Hyaline Casts 4.52 /lpf 01/09/25 19:42 Blood Type O Positive 01/09/25 19:33 Rho(D) Type Rh positive 01/09/25 19:33 Antibody Screen Negative 01/09/25 19:33 Crossmatch See Detail 01/09/25 19:33 Discharge Plan Discharge Patient Disposition: Xfer Short-Term Hosp Clinical Impression: Renal hematoma, left Qualifiers: Encounter type: initial encounter Qualified Code(s): S37.012A - Minor contusion of left kidney, initial encounter Anemia Qualifiers: Anemia type: other cause Other causes of anemia: other cause, not classified Q ualified Code(s): D64.89 - Other specified anemias Condition: Stable Referrals: Denise Navarrete FNP-C [Primary Care Provider] - Print Language: [place] Coding Level of Care Code ED Ratoprinter for Chg Fwd Related Data Home Medications ?Medication ?Instructions ?Recorded ?Confirmed Calcium Citrate +D3 PO BID 10/08/21 09/06/24 aspirin 81 mg tablet,delayed 81 mg PO DAILY 10/08/21 1 11/07/23 release (Adult Low Dose Aspirin) vit cap PO 10/08/21 09/06/24 C,E,zinc,Va-wyqkz-8-lutein-zeaxanthin 250 mg-2.5 mg-0.5 mg capsule potassium gluconate 600 mg (99 mg) 600 mg PO DAILY 09/06/24 tablet trimethoprim 100 mg tablet 100 mg PO DAILY 07/17/22 magnesium oxide 400 mg PO DAILY 03/07/2306/22 oxybutynin chloride 15 mg 15 mg PO DAILY 07/06/2406/22 tablet,extended release 24 hr Previous Rx's ?Medication ?Instructions ?Recorded metoprolol succinate 25 mg 25 mg PO DAILY #90 tabs tablet,extended release 24 hr vibegron 75 mg tablet (Gemtesa) 75 mg PO DAILY #90 tab s 07/06/24 ciprofloxacin HCl 500 mg tablet 500 mg PO BID #14 tabs 08/03/24 Allergies Allergy/AdvReac Type Severity Reaction Status Date / Time cephalexin Allergy Unknown unknown Verified 08/03/24 14:18 Penicillins Allergy Unknown Unknown Verified 08/03/24 14:18
--- NOTE | 2025-01-09 17:24 | XRR_ITS ---
PROCEDURE INFORMATION: Exam: XR Chest Exam date and time: 01/09/2025 5:36 PM Age: 89 years old Clinical indication: PT arrives via EMS from home after an episode of not acting right. Per EMS, PT family stated around 1528 PT had extremety weakness and one sided facial droop. Per EMS, PT family did not specify which extremity was weak. When EMS arrived, all symptoms resolved. PT is alert and oriented and had all over weakness. PT has a history of bladder cancer and had surgery and has not been acting right per family after. PT family also states PT fell at some point last night. PT denies any pain from it. PT has some mild left sided extremety drift. TECHNIQUE: Imaging protocol: Radiologic exam of the chest. Views: 1 view. COMPARISON: CR XR chest 1V [id number] 09/10/2018 4:20 PM FINDINGS: Lungs: Unremarkable. No consolidation. Pleural spaces: Moderate-sized left-sided pleural effusion. Small right-sided pleural effusion. Heart/Mediastinum: Unremarkable. No cardiomegaly. Bones/joints: Unremarkable. XR/XR chest 1V portable [id number] IMPRESSION: Moderate-sized left-sided pleural effusion. Small right-sided pleural effusion.
--- NOTE | 2025-01-09 18:09 | ECG_ITS ---
[facility]: 2025-01-09 Pat Name: Josephine Springer Department: Room: Gender: Female Clinical Quality Manager: : 1935 Requested By: Cale Arguello Order Number: [id number] Kiera MD: Jessy Pierre M.D. Measurements Intervals Davey Rate: 79 P: 79 OK: 152 QRS: 57 QRSD: 93 T: 63 QT: 389 QTc: 447 Interpretive Statements SINUS RHYTHM POSSIBLE ANTERIOR MYOCARDIAL INFARCTION , OF INDETERMINATE AGE [30 ms Q WAVE IN V3/V4, OR R < 0.2 mV IN V4] Compared to ECG 07/12/2020 21:18:54 Myocardial infarct finding now present Ventricular premature complex(es) no longer present T-wave abnormality no longer present Electronically Signed On 01-09-2025 21:18:58 CDT by Jessy Pierre M.D. [id number]
[2025-01-09 18:23] LABS: Basophils % 0.1 %; Lymphocytes # 0.6 10^3/uL (0.8-4.8); Lymphocytes % 4.1 %; Mean Corpuscular HGB Conc 27.9 g/dL (30-55); Mean Corpuscular Hemoglobin 21.9 pg (27-33); Mean Corpuscular Volume 78.5 fl (85-98); Mean Platelet Volume 10.2 fL (7.4-10.4); Monocytes # 0.9 10^3/uL (0.2-0.9); Monocytes % 6.3 %; Neutrophils # 12.41 10^3/uL (1.8-7.7); Neutrophils % 89.1 %; Nucleated Red Blood Cells # 0.2 /100WBC; Nucleated Red Blood Cells % 1.1 %; Platelet Count 399 10^3/cmm (157-399); Red Cell Distribution Width 17.7 % (12.1-15.1); White Blood Count 13.93 10^3/uL (3.29-11.43)
[2025-01-09 18:35] LABS: Hematocrit 20.4 % (36-47)
[2025-01-09 18:47] LABS: Partial Thromboplastin Time 35.6 SECONDS (23.9-36.7)
[2025-01-09 18:48] LABS: Alanine Aminotransferase 14 U/L (0-33); Albumin Level 2.8 g/dL (3.5-5.2); Alkaline Phosphatase 119 U/L (35-105); Blood Urea Nitrogen 41 mg/dL (8-23); Calcium 8.9 mg/dL (8.5-10.5); Carbon Dioxide 17 mmol/L (22-29); Chloride 101 mmol/L (98-107); Creatinine Clr Calc Pharmacy 13.6789; Globulin 3.9 g/dL (1.3-4.6); Glucose 123 mg/dL (65-115); Magnesium 2.3 mg/dL (1.7-2.3); Osmolality Calculated 287 mOsm/kg (285-295); Sodium 133 mmol/L (136-145); Total Bilirubin 0.3 mg/dL (0.15-1.2); Total Protein 6.7 g/dL (6.6-8.7)
[2025-01-09 18:50] LABS: Aspartate Amino Transferase 30 U/L (0-32)
[2025-01-09 19:53] LABS: Bacteria Urine Trace /hpf; Hyaline Casts Urine 4.52 /lpf; RBC Urine 21-50 /hpf (0-2); Squamous Epithelial Cell Urine 21-50 /hpf (0-5); Universal Test for UA Present (0); WBC Urine 21-50 /hpf (0-5)
[2025-01-09 20:11] LABS: Urine Appearance Slightly Cloudy (CLEAR); Urine Color Yellow (Yellow)
[2025-01-09 20:12] LABS: Add Urine Culture? No; Add Urine Microscopic? YES; Bilirubin Urine Neg (Negative); Blood Urine 3+ (Negative); Glucose Urine UA Norm (Normal); Ketones Urine Negative (Negative); Leukocyte Esterase Urine 2+ (Negative); Nitrate Urine Negative (Negative); Protein Urine 1+ (Negative); Urobilinogen Urine Norm (Negative); pH Urine 9 (5-7)
[2025-01-09 20:47] LABS: Iron 8 ug/dL (37-145); Percent Saturation 2.8 % (20-50); Total Iron Binding Capacity 278 mcg/dl; Unsaturated Iron Binding 270 ug/dL (112-347)
--- NOTE | 2025-01-09 20:54 | CTR_ITS ---
PROCEDURE INFORMATION: Exam: CT Abdomen And Pelvis Without Contrast Exam date and time: 01/09/2025 9:24 PM Age: 89 years old Clinical indication: Pain and abnormal findings; Abnormal lab test; Abdominal pain; Localized; Prior surgery; Surgery date: 3-7 days post-operative; Surgery type: Left ureteral pigtail stent removed last week. C/O left sided abd pain. Acute anemia with hgb of 5.7 and hct of 20.4. Left pigtail ureteral stent removed last week. History of bladder cancer. ; Additional info: Anemia, abd pain, urological surgery 1 week ago TECHNIQUE: Imaging protocol: Computed tomography of the abdomen and pelvis without contrast. Radiation optimization: All CT scans at this facility use at least one of these dose optimization techniques: automated exposure control; mA and/or kV adjustment per patient size (includes targeted exams where dose is matched to clinical indication); or iterative reconstruction. COMPARISON: CR XR hip LT 2-3V wo/w pel* [id number] 11/06/2022 1:33 PM RADIATION DOSE METRICS: Total DLP (mGy-cm): 1760.35 FINDINGS: Lungs: Partially visualized left-sided pleural effusion with significant atelectatic changes in the left lung base. Liver: Normal. No mass. Gallbladder and biliary ducts: Normal. No calcified stones. No ductal dilation. Pancreas: Normal. No ductal dilation. Spleen: Normal. No splenomegaly. Adrenal glands: Normal. No mass. Kidneys and ureters: Subcapsular hematoma of the left kidney measuring approximately 9.1 x 5.3 x 5.7 cm. There is hyperdense fluid in the left renal collecting system, dilated left ureter down to the level of the bladder. Stomach and bowel: Unremarkable. No obstruction. No mucosal thickening. Appendix: No evidence of appendicitis. Intraperitoneal space: Unremarkable. No free air. No significant fluid collection. Vasculature: Unremarkable. No abdominal aortic aneurysm. Lymph nodes: Unremarkable. No enlarged lymph nodes. Urinary bladder: Circumferential bladder wall thickening with calcifications along the inner rim of the bladder wall. There is a tiny locule of air in the bladder. Nonspecific this can be seen the setting of cystitis. Correlate with UA. Reproductive: Unremarkable as visualized. Bones/joints: Unremarkable. No acute fracture. Soft tissues: Unremarkable. CT/CT abdomen pelvis wo con [id number] IMPRESSION: 1. Subcapsular hematoma of the left kidney measuring approximately 9.1 x 5.3 x 5.7 cm. 2. There is hyperdense fluid in the left renal collecting system, dilated left ureter down to the level of the bladder. 3. Circumferential bladder wall thickening with calcifications along the inner rim of the bladder wall. There is a tiny locule of air in the bladder. Nonspecific this can be seen the setting of cystitis. Correlate with UA. COMMENTS: Consistent with the [employer]'s Incidental Findings Committee white paper (J Am Jacqueline Radiol 2018): Any incidental renal lesion less than 1 cm or classified as too small to characterize, or any incidental cystic renal lesion characterized as simple-appearing, is likely benign. No follow-up imaging is recommended for these lesions per consensus recommendations based on imaging criteria.
--- NOTE | 2025-01-09 20:59 | PM.HP ---
Providers/Chief Complaint Admitting Physician: Luciano Ernandez MD Primary Care Provider: GRACE Little Chief Complaint: weakness History of Present Illness Josephine Springer is a 89 year old female with history of bladder cancer over 6 years has been seeing Dr. Mikhail Denton at [facility]. 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 She has had pain and discomfort with left ureteral stent so that was removed and left out she has follow-up appointment on Friday for pathology and reevaluation. It is known that she may need another stent. She is also supposed be on Bactrim but she has had nausea with it so is not taking it. Patient has fallen and was brought in by family with lethargy getting days and nights mixed up and weakness. She is not overtly confused. Patient was found to have anemia with hemoglobin 5.7. She is referred for admission for blood transfusion. I spoke with Jos Dorsey PA-C and we agree to proceed with noncontrast CT. Provided there is no retroperitoneal bleed or severe hydronephrosis patient will be admitted here and follow-up outpatient with urology Review of Systems Narrative: General no fevers chills Cardiovascular no chest pain Respiratory she is dyspneic on exertion patient has had blood clots and incontinence prior to stent removal. Since stent removal this has cleared up with urine clear the last few days she does have left abdominal pain Medications/Allergies Home Medications ?Medication ?Instructions ?Recorded ?Confirmed ?Last Taken ?Type Calcium Citrate +D3 PO BID 10/08/21 09/06/24 Unknown History aspirin 81 mg tablet,delayed 81 mg PO DAILY 10/08/21 09/06/24 Unknown History release (Adult Low Dose Aspirin) vit cap PO 10/08/21 09/06/24 Unknown History C,E,zinc,Ev-dgbgf-6-lutein-zeaxanthin 250 mg-2.5 mg-0.5 mg capsule potassium gluconate 600 mg (99 mg) 600 mg PO DAILY 07/17/22 09/06/24 Unknown History tablet trimethoprim 100 mg tablet 100 mg PO DAILY 07/17/22 09/06/24 Unknown History magnesium oxide 400 mg PO DAILY 03/07/23 09/06/24 Unknown History metoprolol succinate 25 mg 25 mg PO DAILY #90 tabs 10/13/23 09/06/24 Unknown Rx tablet,extended release 24 hr oxybutynin chloride 15 mg 15 mg PO DAILY 07/06/24 09/06/24 Unknown History tablet,extended release 24 hr vibegron 75 mg tablet (Gemtesa) 75 mg PO DAILY #90 tabs 07/06/24 09/06/24 Unknown Rx ciprofloxacin HCl 500 mg tablet 500 mg PO BID #14 tabs 08/03/24 09/06/24 Unknown Rx Allergies Allergy/AdvReac Type Severity Reaction Status Date / Time cephalexin Allergy Unknown unknown Verified 08/03/24 14:18 Penicillins Allergy Unknown Unknown Verified 08/03/24 14:18 PFSH Acute PFSH: Medical History (Updated 01/09/25 @ 21:08 by Luciano Ernandez MD) Acute on chronic blood loss anemia UTI (urinary tract infection) Hydronephrosis, left PSVT (paroxysmal supraventricular tachycardia) HTN (hypertension) Arthritis Sleep disorder Esophageal reflux Hypercholesteremia Bladder cancer Surgical History S/P ureteral stent placement Family History Father Hypertension Mother FH: CABG (coronary artery bypass surgery) Social History Smoking and tobacco/nicotine status: unknown if used tobacco/nicotine Vitals/I&O/Wt Last Vital Signs Temp 98.2 F 01/09/25 20:38 Pulse 92 01/09/25 20:38 Resp 18 01/09/25 20:38 BP 142/64 01/09/25 20:38 Pulse Ox 97 01/09/25 20:30 O2 Del Method Room Air 01/09/25 20:30 01/09/25 01/09/25 01/09/25 06:59 14:59 22:59 Intake Total 0 / 0 Balance 0 / 0 Weight last 48 hrs Weight 63.503 kg Physical Exam Narrative: General well-developed well-nourished modestly overweight female appears her stated age. CV regular rate and rhythm Lungs clear to auscultation with mild decrease in the bases left worse than right Abdomen positive bowel sounds soft she is diffusely tender but moderately in the left lower quadrant suprapubic and to a lesser degree right lower quadrant. Back is with tenderness to the left flank on percussion. Calves trace edema Skin warm and dry Data 01/09/25 18:13 01/09/25 18:13 CXR: My impression: Left pleural effusion Radiologist's impression: Left pleural effusion and trace right pleural effusion A&P Assessment and plan (1) Acute on chronic blood loss anemia: Patient is symptomatic with this with weakness lethargy and dyspnea on exertion. She will be transfused 2 units packed red cells. Iron studies ordered. She may require iron replacement as well (2) Bladder cancer: Continue follow-up with Dr. Denton at [facility]. Patient states she would consider chemoradiation if in the right situation but she and family states that she has already been through the chemotherapy once. Dr. Denton has taken over for previous urologist Dr. Barbosa. Qualifiers: Bladder location: unspecified site Qualified Code(s): C67.9 - Malignant neoplasm of bladder, unspecified (3) Hydronephrosis, left: Anticipate some degree of hydronephrosis but not retroperitoneal bleeding or severe disease. If this can be pursued outpatient will do so if not then transfer will be initiated (4) UTI (urinary tract infection): Start Rocephin as discussed with CECILE Dorsey PDMP PDMP Reviewed: Not Reviewed Attestations Medical Necessity Statement*: Patient will need admission for IV fluid and blood transfusion. CT scan is pending. If there is no acute surgical pathology she will be admitted here for this Coding Level of Care Code 60885 Diagnoses Acute on chronic blood loss anemia D62 Malignant neoplasm of urinary bladder, unspecified site C67.9 Bladder location: unspecified site Hydronephrosis, left N13.30 UTI (urinary tract infection) N39.0 Time Spent (min) 75
[2025-01-09] MEDS: cefTRIAXone 1,000 mg SDV 1000 MG IVP (21:24)
[2025-01-09] MEDS: IRON SUCROSE 100 MG/5 ML 200 MG IVP (22:02)
[2025-01-10] VITALS (14 sets, daily range): BP systolic 124–162; BP diastolic 50–93; PULSE 79–94; RESP 18–31; TEMP 29.4–36.8; O2SAT 94–98
[2025-01-10] MEDS: sodium chloride 0.9% 100 mL Bag 50 ML IV ×2 (00:03→00:04)
[2025-01-10] MEDS: lidocaine 2% viscous 15 mL UDC 10 ML TOPICAL (00:03)
== END 2025-01-10 09:17 | disposition short-term general hospital (02) ==
PROVIDERS: Internal Medicine; Emergency Provider Physician Assistant; PCP Nurse Practitioner Family
DX: S37.012A Minor contusion of left kidney, initial encounter (principal); D64.89 Other specified anemias; I10 Essential (primary) hypertension; Z85.51 Personal history of malignant neoplasm of bladder; X58.XXXA Exposure to other specified factors, initial encounter
CPT/HCPCS: 36415; 36430; 70450; 71045; 74176; 80053; 81001; 83540; 83550; 83605; 83735; 85025; 85610; 85730; 86850; 86900; 86920; 93005; 96374; 96375; 99285; J0696; J1756; J9999; P9016